=== PATIENT | male | born 1985 | race African-American/Black ===

== ENCOUNTER 2017-08-25 11:17 | Emergency (ER) | payer OTHER ==
--- NOTE | 2017-08-25 12:57 | XRAY Report ---
EXAM: CHEST RADIOGRAPHY EXAM DATE: 08/25/2017 12:34 PM. CLINICAL HISTORY: Cough. Question pneumonia. COMPARISON: None. TECHNIQUE: 1 view. FINDINGS: Lungs/Pleura: Peribronchial cuffing. Lateral left hemidiaphragm is obscured. Overall lung volumes are mildly diminished with crowding of pelvic vessels. Mediastinum: Within exam limitations, the cardiomediastinal contour is normal. Other: None. IMPRESSION: 1. Lateral left basilar atelectasis and/or early airspace disease from pneumonia. 2. Peribronchial cuffing is noted, compatible with underlying reactive airways disease or viral bronc hitis. [facility] Referring Provider Line: [phone] SITE ID: [id number]
--- NOTE | 2017-08-25 13:32 | ED Physician Documentation ---
PD HPI URI - Stated complaint Stated Complaint: COUGH/RIB PAIN BREATHING - Chief complaint Chief Complaint: Resp - History obtained from History obtained from: Patient - History of Present Illness Timing - onset: How many days ago (2) Timing details: Still present Similar symptoms before: Diagnosis (Similar symptoms when diagnosed with pneumonia a year or 2 ago.) - Additional information Additional information: The patient is a 32-year-old male who presents with right sided chest pain that he states "feels like when I had pneumonia a year or 2 ago." He reports fatigue for the past 2 days with a mild nonproductive cough. He had low-grade fever yesterday. He denies headache, sore throat, or abdominal symptoms. He does not smoke cigarettes. Review of Systems Constitutional: reports: Fever (low-grade), Fatigue Ears: denies: Tinnitus/ringing Nose: denies: Congestion Throat: denies: Sore throat Cardiac: reports: Chest pain / pressure (right sided) Respiratory: reports: Cough (mild, nonproductive.). denies: Dyspnea GI: denies: Abdominal Pain, Nausea, Vomiting : denies: Dysuria Skin: denies: Rash Musculoskeletal: denies: Back pain, Extremity swelling Neurologic: denies: Focal weakness, Numbness, Headache PD PAST MEDICAL HISTORY - Past Medical History Past Medical History: No Cardiovascular: None Respiratory: Pneumonia Neuro: None Endocrine/Autoimmune: None - Past Surgical History Past Surgical History: No - Present Medications Home Medications: Ambulatory Orders Medication Instructions Recorded Confirmed Azithromycin [Zithromax] 250 mg PO DAILY #6 tablet 08/25/17 - Allergies Allergies/Adverse Reactions: Allergies Allergy/AdvReac Type Severity Reaction Status Date / Time No Known Drug Allergies Allergy Verified 08/25/17 11:59 - Social History Does the pt smoke?: No Smoking Status: Never smoker Does the pt drink ETOH?: No Does the pt have substance abuse?: No - Immunizations Immunizations are current?: Yes PD ED PE NORMAL - Vitals Vital signs reviewed: Yes (Borderline hypertension.) - General General: Alert and oriented X 3, Well developed/nourished, Other (Large stature. ) - HEENT HEENT: Atraumatic, Ears normal, Pharynx benign - Neck Neck: Supple, no meningeal sign, No adenopathy, No JVD - Cardiac Cardiac: RRR, No murmur - Respiratory Respiratory: No respiratory distress, Clear bilaterally, Other (No chest wall tenderness to palpation.) - Abdomen Abdomen: Soft, Non tender - Back Back: No CVA TTP - Derm Derm: No rash - Extremities Extremities: No edema, No calf tenderness / cord - Neuro Neuro: Alert and oriented X 3, No motor deficit, Normal speech Results - Vitals Vitals: Oxygen O2 Source Room air - Rads (name of study) CXR Radiology: Prelim report reviewed, EMP read contemporaneously, See rad report ( Lateral left basilar atelectasis and/or early airspace disease from pneumonia. Peribronchial cuffing is noted, compatible with underlying reactive airways disease or viral bronchitis.) PD MEDICAL DECISION MAKING - ED course Complexity details: reviewed results, considered differential, d/w patient ED course: The patient's presentation is significant for viral versus bacterial pneumonia, with airspace disease noted in the left lower lobe on chest x-ray. He has no wheezes or rhonchi on auscultation of his chest. Given his past medical history , current symptoms, and chest x-ray findings, he is being discharged with prescription for azithromycin. I discussed with him the chest x-ray findings, expected course of illness, outpatient follow-up, as well as potentially worrisome signs or symptoms that should prompt reevaluation in the emergency department. Departure - Departure Disposition: 01 Home, Self Care Clinical Impression: Pneumonia Qualifiers: Pneumonia type: due to unspecified organism Laterality: left Lung location: lower lobe of lung Qualified Code(s): J18.1 - Lobar pneumonia, unspecified organism Condition: Stable Instructions: ED Pneumonia Adult Follow-Up: KATHLE[facility] faustinahernesto [facility] [Provider Group] Prescriptions: Azithromycin [Zithromax] 250 mg PO DAILY #6 tablet Comments: Take Zithromax daily as prescribed. Use Tylenol or ibuprofen if needed for fever or discomfort. Follow up with your primary physician within 1-2 weeks. Call to schedule appointment. Return to the emergency department if you develop increasing difficulty breathing, or otherwise worsening symptoms. Discharge Date/Time: 08/25/17 13:47
[2017-08-25 13:48] VITALS: BP 130/93
== END 2017-08-25 13:47 | disposition home or self-care (01) ==
LOC: ED 11:17
DX: J18.9 Pneumonia, unspecified organism (principal)
CPT/HCPCS: 71045; 99283; 99284

== ENCOUNTER 2018-04-20 10:01 | Emergency (ER) | payer OTHER ==
--- NOTE | 2018-04-20 10:51 | ED Physician Documentation ---
PD HPI LOWER EXT INJURY - Stated complaint Stated Complaint: BILAT KNEE PX - Chief complaint Chief Complaint: Ext Problem - History obtained from History obtained from: Patient - History of Present Illness PD HPI LOW EXT INJURY LOCATION: Left, Knee Timing - onset: How many days ago (2) Associated symptoms: No: Weakness, Numbness, Swelling Similar symptoms before: Has not had sx before - Additional information Additional information: Patient is a 33-year-old male who presents with pain in his left knee. The pain started 2 days ago while he was sprinting. He felt a pop in his knee, and it has been uncomfortable since. He has been able to bear weight. He denies history of similar symptoms in the past. 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 Review of Systems Constitutional: denies: Fever Skin: denies: Rash Musculoskeletal: reports: Joint pain (left knee). denies: Back pain Neurologic: denies: Focal weakness, Numbness PD PAST MEDICAL HISTORY - Past Medical History Past Medical History: Yes Cardiovascular: None Respiratory: Pneumonia Endocrine/Autoimmune: None - Past Surgical History Past Surgical History: No - Allergies Allergies/Adverse Reactions: Allergies Allergy/AdvReac Type Severity Reaction Status Date / Time No Known Drug Allergies Allergy Verified 04/20/18 10:06 - Social History Does the pt smoke?: No Smoking Status: Never smoker Does the pt drink ETOH?: No Does the pt have substance abuse?: No - Immunizations Immunizations are current?: Yes PD ED PE NORMAL - Vitals Vital signs reviewed: Yes (Initially hypertensive.) - General General: Alert and oriented X 3, Well developed/nourished - HEENT HEENT: Atraumatic - Respiratory Respiratory: No respiratory distress - Derm Derm: No rash - Extremities Extremities: No edema, No calf tenderness / cord, Other (There is no swelling of the knee, and no ecchymosis. There is mild tenderness to palpation medially , without tenderness to palpation along the joint lines. He is able to extend the knee fully and can flex past 90. There is no ligamentous instability detected. Distal neurovascular is intact.) - Neuro Neuro: Alert and oriented X 3, No motor deficit, No sensory deficit Results - Vitals Vitals: Vital Signs - 24 hr 04/20/18 04/20/18 10:03 11:40 Temperature 36.7 C 37.1 C Heart Rate 65 76 Respiratory 16 16 Rate Blood Pressure 138/81 H 116/75 O2 Saturation 99 98 Oxygen O2 Source Room air - Rads (name of study) left knee Radiology: Prelim report reviewed, EMP read contemporaneously, See rad report ( Bipartite patella. No fractures or bony subluxation. Mild soft tissue swelling medially.) PD MEDICAL DECISION MAKING - ED course Complexity details: reviewed results, re-evaluated patient, considered differential, d/w patient ED course: The patient's presentation is most consistent with strain of the left knee. X- ray of the knee reveals no evidence of acute bony abnormality. It does reveal a bipartite patella, which is a normal variant. I discussed with him the results of the imaging study, expected course of injury , symptomatic treatment and outpatient follow-up, as well as potentially worrisome signs or symptoms that should prompt reevaluation in the emergency department. - Sepsis Event Vital Signs: Vital Signs - 24 hr 04/20/18 04/20/18 10:03 11:40 Temperature 36.7 C 37.1 C Heart Rate 65 76 Respiratory 16 16 Rate Blood Pressure 138/81 H 116/75 O2 Saturation 99 98 Oxygen O2 Source Room air Departure - Departure Disposition: 01 Home, Self Care Clinical Impression: Bipartite patella Strain of left knee Qualifiers: Encounter type: initial encounter Qualified Code(s): S86.912A - Strain of unspecified muscle(s) and tendon(s) at lower leg level, left leg, initial encounter Condition: Stable Instructions: ED Sprain Knee Comments: You can use ibuprofen, up to 800 mg if needed for pain. Let pain be your guide to activity level. Follow up with your primary physician within 2 weeks. Call to schedule appointment. Return to the emergency department if you develop increasing pain or swelling of your knee, or otherwise worsening Discharge Date/Time: 04/20/18 12:03
--- NOTE | 2018-04-20 11:34 | XRAY Report ---
Reason: left knee pain after "pop" when sprinting. Procedure Date: 04/20/2018 Accession Number: [id number] / [id number] Procedure: XR - Knee 3 View LT CPT Code: FULL RESULT: EXAM: LEFT KNEE RADIOGRAPHY EXAM DATE: 04/20/2018 11:19 AM. CLINICAL HISTORY: Left knee pain after pop when sprinting. COMPARISON: None. TECHNIQUE: 3 views. FINDINGS: Bones: Bipartite patella No fractures or bone lesions. Joints: Normal. No effusion. No subluxations. Soft Tissues: Medial soft tissue swelling. IMPRESSION: Normal knee radiography. [facility]
[2018-04-20 11:41] VITALS: BP 116/75
== END 2018-04-20 12:03 | disposition home or self-care (01) ==
LOC: ED 10:01
DX: S86.912A Strain of unspecified muscle(s) and tendon(s) at lower leg level, left leg, initial encounter (principal); Q74.1 Congenital malformation of knee; Y93.02 Activity, running
CPT/HCPCS: 99283